=== PATIENT | female | born 1975 | race Caucasian/White ===

== ENCOUNTER 2023-06-02 12:49 | Outpatient (CLI) | payer BC, SELFPAY | END 2023-06-02 12:50 | disposition home or self-care (01) | PROVIDERS: PCP Family Medicine; Visit Provider Family Medicine | DX: I10 Essential (primary) hypertension (principal); D64.9 Anemia, unspecified; Z13.29 Encounter for screening for other suspected endocrine disorder; Z13.9 Encounter for screening, unspecified | CPT/HCPCS: 80053; 80061; 82043; 82570; 84156; 84443; 86803 ==

== ENCOUNTER 2023-06-14 14:14 | Outpatient (CLI) | payer BC, SELFPAY ==
--- NOTE | 2023-06-14 14:30 | CRLHL7_ITS ---
For Patients: As a result of the Century Cures Act, medical imaging exams and procedure reports are released immediately into your electronic medical record. You may view this report before your referring provider. If you have questions, please contact your health care provider. INDICATION: Eye issues. TECHNIQUE: Multiplanar multisequence MR imaging of the brain prior to and following intravenous contrast. COMPARISON: None. FINDINGS: The ventricles and sulci are within normal limits for patient age. No mass effect or midline shift. Small FLAIR hyperintensities scattered in the supratentorial white matter of both cerebral hemispheres, nonspecific. Small chronic cortically based infarctions within the parietal lobes. Chronic lacunar infarctions in the cerebellar hemispheres. No intracranial hemorrhage or pathologic extra-axial fluid collection. No diffusion restriction to suggest acute infarction. No pathologic intracranial enhancement. The major arterial flow voids of the skullbase are preserved. The globes are symmetric. Mild paranasal sinus mucosal thickening. Trace mastoid fluid bilaterally. IMPRESSION: 1. No acute intracranial abnormality. 2. 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 Chronic lacunar infarctions in the cerebellum. 3. Small FLAIR hyperintensities scattered in the supratentorial white matter are nonspecific, though most typical for sequelae of mild chronic microvascular ischemic changes or migraine headaches. Dictated by John Shore MD @ 06/14/2023 6:04:03 PM (Electronically Signed)
--- NOTE | 2023-06-14 16:00 | CRLHL7_ITS ---
For Patients: As a result of the Century Cures Act, medical imaging exams and procedure reports are released immediately into your electronic medical record. You may view this report before your referring provider. If you have questions, please contact your health care provider. INDICATION: EXCESSIVE AND FREQUENT BLEEDING COMPARISON: none TECHNIQUE: 2D morocho scale and color Doppler images were acquired of the pelvis using a transabdominal and transvaginal approach. FINDINGS: Exophytic left fundal fibroid measures 4.6 x 4.7 x 4.4 cm. Right fundal intramural fibroid abutting the endometrium measuring 2.9 x 3.3 x 3.1 cm. Midline hypoechoic solid structure measures 3.1 x 1.7 x 2.2 cm. Uterus measures 9.8 cm in length by 6.0 cm in AP diameter by 7.8 cm in transverse dimension. The endometrium is thickened and heterogeneous measuring 2.1 cm. The right ovary is not visualized and the left ovary measures 2.6 x 1.6 x 1.8 cm. The left ovary demonstrates normal arterial and venous blood flow on color Doppler analysis. There are no suspicious fluid collections within the cul-de-sac. IMPRESSION: Midline solid structure associated with the endometrium measuring 3.1 x 1.7 x 2.2 cm, probable submucosal fibroid, exclude endometrial polyp. Thickened and heterogeneous endometrial thickness measuring 2.1 cm. Left fundal exophytic fibroid measuring 4.7 cm and right fundal intramural fibroid abutting the endometrium measuring 3.3 cm. Dictated by Troy Rivera MD @ 06/15/2023 11:55:56 AM (Electronically Signed)
== END 2023-06-14 14:15 | disposition home or self-care (01) ==
PROVIDERS: PCP Family Medicine; Visit Provider Family Medicine
DX: Z80.8 Family history of malignant neoplasm of other organs or systems (principal); I63.81 Other cerebral infarction due to occlusion or stenosis of small artery; G51.0 Bell's palsy; I10 Essential (primary) hypertension; N92.0 Excessive and frequent menstruation with regular cycle; R93.89 Abnormal findings on diagnostic imaging of other specified body structures; D64.9 Anemia, unspecified
CPT/HCPCS: 70553; 76830; 76856; A9575

== ENCOUNTER 2023-08-25 12:48 | Outpatient (CLI) | payer BC, SELFPAY ==
--- NOTE | 2023-08-25 13:00 | MM_ITS ---
Patient: BECCA MOSS Facility:?[facility] Patient ID:?[id number] Site Patient ID:?[id number]. Site :?[id number] Study:?XRay-Breast Bilateral 3D W/CAD-08/25/2023 3:49:47 PM Ordering Physician:?Salma Contreras Final Report: BILATERAL SCREENING MAMMOGRAM WITH COMPUTER-AIDED DETECTION AND TOMOSYNTHESIS TECHNIQUE: CC and MLO views were obtained. These mammographic images have been obtained using full-field digital technique. These mammographic images were interpreted with the benefit of computer-aided detection. Breast Tomosynthesis was used in this interpretation. COMPARISON FILM: 01/04/22, 05/11/20, 08/19/16. FINDINGS: The breasts are heterogeneously dense, which may obscure small masses. IMPRESSION: There is no radiographic evidence for malignancy. ASSESSMENT: BI-RADS Category 2: Benign RECOMMENDATION: Routine screening mammogram in 1 year. A lay language report of this examination will be provided to the patient. Troy Rivera M.D. Diagnostic Radiologist [email or web address] DSM/sp R& Transcribed: 5:14 p. SP/Dictated by: Troy Rivera MD @ 09/14/2023 10:22:00 AM Signed by:Alba Rivera MD @09/14/2023 8:24:20 PM (Electronic Signature)
== END 2023-08-25 12:49 | disposition home or self-care (01) ==
PROVIDERS: PCP Family Medicine; Visit Provider Family Medicine
DX: Z12.31 Encounter for screening mammogram for malignant neoplasm of breast (principal); R92.2 Inconclusive mammogram
CPT/HCPCS: 77063; 77067

== ENCOUNTER 2023-09-20 07:32 | Day surgery (SDC) | payer BC, SELFPAY ==
[2023-09-20] VITALS (22 sets, daily range): BP systolic 97–123; BP diastolic 65–88; PULSE 60–94; RESP 12–22; TEMP 35.9–37.3; O2SAT 97–100; BMI 24.7
[2023-09-20 08:05] LABS: Ur HCG Qualitative* Negative (Negative)
[2023-09-20 08:10] LABS: Hemoglobin* 12.1 gm/dL (12.0-16.0)
[2023-09-20] MEDS: LACTATED RINGERS 1000 ML 1,000 ML 100 ML IV (08:13)
[2023-09-20] MEDS: SODIUM CHLORIDE 0.9 % (FLUSH) 10 ML SYRINGE IVF (08:13)
[2023-09-20] MEDS: CEFAZOLIN 2 GM INJ IVP (08:49)
[2023-09-20] MEDS: BUPIVACAINE 0.5% 30 ML INJECTION (10:20)
--- NOTE | 2023-09-20 10:26 | P.NB_ITS ---
Nerve Block Nerve Block Time Seen by Provider: 08:35 Date Seen: 09/20/23 Type of block requested by surgeon for post-operative analgesia: TAP Side: bilateral Time out performed: Yes Verification of patient name: Yes Verification of date of : Yes Site marking: site marked Name of person performing procedure: Kyler Continuous monitoring Was continuous monitoring of O2 sat, B/P, nuclear monitoring technician, recorded every 15 minutes?: Yes Procedure Checklist: sterile prep, needles and gloves Ultrasound guided. Images saved: Yes Medications given in 5ml increments after negative aspiration: Marcaine %: 0.25 mL: 30 Needle gauge: 20 and Exparel mL: 10 Patient tolerated procedure well: Yes Additional comments: Needle noted between internal oblique and transversus abdominus. Local spread visualized Block Charges Block Charge (with Pro Fee): TAP Bilateral Use of Ultrasound Machine for Block: Yes- US Guidance/pain block
--- NOTE | 2023-09-20 10:26 | W.ANESCHARGE ---
Anesthesia Charges Start Date/Time Anesthesia Start Date: 09/20/23 Anesthesia Start Time: 08:25 Stop Date/Time Anesthesia Stop Date: 09/20/23 Anesthesia Stop Time: 10:47
--- NOTE | 2023-09-20 10:37 | P.PCN_ITS ---
Procedure Note Time Seen by Provider: 10:38 Date Seen: 09/20/23 Date of procedure: 09/20/23 Will [facility] bill your pro fee for this procedure?: Yes Procedure: Preoperative diagnosis: 63-isra-xhp-year-old 4 para 4 with uterine fibroids and heavy menstrual bleeding. Postoperative diagnosis: Same Procedure: Total laparoscopic hysterectomy, bilateral salpingectomy, diagnostic cystoscopy. Anesthesia: General endotracheal, local,TAPS block. Surgeon: Joan Parmar MD Assist: Mely Leo MD Estimated blood loss: 150 mL. IV Fluid: 1900 mL Urine output: 400 mL Drains: Tubbs to gravity Specimen: Uterus and bilateral fallopian tubes to pathology. Findings: On exam under anesthesia: The uterus was mid position, approximately 12-14 week size, mobile without nodularity or masses palpable. Adnexa without mass or fullness palpable. On laparoscopy: Enlarged uterus with multiple intramural fibroids. Appendix, liver and gallbladder all appeared normal. Procedure: Hollie was taken to the operating room where general anesthetic was found to be adequate. She was placed in the dorsal lithotomy position and an exam under anesthesia was performed with findings stated above. She was then prepped and draped in a normal sterile manner. A Tubbs catheter was placed. A bivalve speculum was placed in the vaginal canal. A long Allis clamp was placed on the anterior lip of the cervix, in the uterus sounded to 10 cm. A extra large VCare uterine manipulator was then placed. The Allis clamp and speculum were removed from the cervix. Attention was then turned to performing the laparoscopic portion of the procedure. All incisions were infiltrated with 0.5% Marcaine prior to incising the skin. A vertical, infraumbilical 1 cm incision was made. An 11 mm trocar was then placed under direct visualization. The abdomen was then insufflated with CO2 gas to a pressure of 15 mm of mercury. Two,, pelvic ports were then placed approximately 3-4 finger breaths medial to the ischial crests. The trocar in the RLQ = 5mm, LLQ = 11mm. These were placed under direct visualization. Attention was then turned to performing the hysterectomy. Both ureters were visualized in the normal position bilaterally. The left fallopian tube was grasped and removed with sequential pedicles using the dissecting, PowerSeal blunt tip dissecting forceps. The left side of the hysterectomy was performed using the PowerSeal dissecting forceps. The 1st pedicles were starting with the broad ligament that was cauterized and and bisected. In sequence show pedicles were formed to divide the utero-ovarian ligament. Then sequential pedicles were made through the broad ligament. The posterior leaf of the broad ligament was then divided and sequential pedicles carried down to the level of the VCare cup. The anterior leaf of the broad ligament was then divided down to the level of the anterior aspect of the VCare cup and a bladder flap created. The uterine vessels were then skeletonized. The uterine vessels were then cauterized and divided. Then excess tissue was cleared over the top of the VCare cup using the dissecting forceps. The right salpingectomy and right side of the hysterectomy were then performed in a similar manner. The Ligasure Binary Fountainlab pen with the spatula attachment was then used to perform the colpotomy incising around the VCare cup. The uterus was removed and the fundus placed in the vaginal canal to maintain insufflation. The vaginal cuff was then reapproximated using 2-0 V lock suture in a running manner. All the pedicles and vaginal cuff were then closely visualized and hemostasis obtained with bipolar cautery using the PowerSeal dissecting forceps or the Valleylab pen with the spatula. The the uterus was removed from the vaginal canal and sent to pathology. The Tubbs catheter was briefly removed. A diagnostic cystoscopy was performed using normal saline as the insufflation medium. The dome of the bladder was noted to be without injury and no evidence of any sutures from the vaginal cuff causing injury. Normal urine flow was noted through both ureteral orifices. Fluorescein IV was used to visualize the urine more easily. The Tubbs catheter was then replaced. Attention was then returned to the abdomen where hemostasis was verified. The CO2 pressure decreased to 8mmHG and hemostasis verified. The fascia in the LLQ incision was approximated with 0-Vicryl suture using the Jeremy Thomasen fascial closure device. This was closed under direct visualization with the laparoscope. The fascia in the umbilical incision was reapproximated using 0 Vicryl on a UR 6 needle. All trocars were removed under direct visualization. CO2 gas was allowed to escape the infraumbilical port prior to its removal. All skin incisions were re-approximated using 4-0 Monocryl in a running subcuticular manner, Exofin skin adhesive gel and adhesive bandages placed. The patient tolerated this procedure well. Sponge, lap and instrument counts were correct x2 at the end of the procedure and the patient was taken to the recovery area in stable condition. The patient received 2 gm IV ancef prior to the start of the procedure.
--- NOTE | 2023-09-20 10:44 | W.PM.H&PU ---
History & Physical Update History & Physical Update H&P Reviewed and patient assessed: No changes noted
--- NOTE | 2023-09-20 10:45 | W.ANESCHARGE ---
Anesthesia Charges Start Date/Time Anesthesia Start Date: 09/20/23 Anesthesia Start Time: 08:25 Stop Date/Time Anesthesia Stop Date: 09/20/23 Anesthesia Stop Time: 10:47
[2023-09-20] MEDS: LACTATED RINGERS 1000 ML 1,000 ML 125 ML IV ×2 (11:57→11:59)
[2023-09-20] MEDS: ASPIRIN 81 MG TABLET EC PO (13:01)
[2023-09-20] MEDS: KETOROLAC 30 MG/ML inj IVP ×2 (15:35→21:48)
--- NOTE | 2023-09-20 19:21 | PC.NURSE ---
End of shift: Pt arrived to unit from PACU @ 1130. Pt has been A&O x4, afebrile and VSS. Tubbs catheter intact and draining clear, light green urine with adequate output. Lap sites x3 SHANNON and C/D/I. PIV in left hand now SL and C/D/I. Pt tolerating PO intake with no nausea. She reports intermittent right rib pain rating 4/10. Scheduled IV Toradol given per AUG. No PRN meds given so far.
[2023-09-20] MEDS: ENOXAPARIN 40 MG/0.4 ML INJ SUBCUT (21:47)
[2023-09-20] MEDS: SODIUM CHLORIDE 0.9 % (FLUSH) 10 ML SYRINGE 5 ML IVF (21:49)
[2023-09-21 03:00] VITALS: BP 111/74; PULSE 62; RESP 16; TEMP 37.2; O2SAT 97
[2023-09-21] MEDS: IBUPROFEN 600 MG TABLET PO ×2 (03:13→09:13)
[2023-09-21 05:33] LABS: Hemoglobin* 10.8 gm/dL (12.0-16.0)
--- NOTE | 2023-09-21 06:37 | PC.NURSE ---
[id number] Pt slept well during night, ambulated halls x1 in the evening, tolerated activity very well. has some cramping but pain controlled with scheduled meds. mooney in place, patent and draining. lap sites C/D/I, ice to abdomen during night. denies passing gas at this time. tolerating PO intake, no N/V.
[2023-09-21 07:00] VITALS: BP 125/84; PULSE 65; RESP 16; TEMP 36.6; O2SAT 99
--- NOTE | 2023-09-21 08:32 | P.DS_ITS ---
DS: Providers Provider Time Seen by Provider: 08:32 Date Seen: 09/21/23 Date of admission: In 2023 Primary care physician: Salma Contreras MD Admitting Clinician: Joan Parmar MD Attending Physician on discharge: Joan Parmar MD Date of Discharge: 09/21/23 DS: Diagnosis Discharge Diagnosis (1) Status post laparoscopic hysterectomy: Status: Acute Problem details: with bilateral salpingectomy. (2) Fibroid uterus: Status: Acute SOCK LINING EXAMINER-Discharge Summary Hospital Course Hospital Course Narrative: Hospital Course: Hollie was admitted to the hospital on 09/20/2023 for a scheduled scheduled total laparoscopic hysterectomy, bilateral salpingectomy and cystoscopy. Her surgery was uncomplicated. Her postoperative course was also uncomplicated. By postoperative day 1, she was tolerating a regular diet, ambulating without difficulty, passing flatus and pain was well controlled with oral pain medications. She would like to be discharged home today. Labs: Preoperative hemoglobin 12.1, postoperative hemoglobin 10.8. Objective: General: Alert and oriented x3. Pleasant, woman in no acute distress. Vital signs: See EMR. Heart: Regular rate and rhythm without gallop, rub or murmur. Chest: Clear to auscultation bilaterally. Abdomen: Soft, nontender, nondistended with normal bowel sounds throughout. No CVA or flank tenderness. Incision(s): Clean, dry and intact w/ sutures and skin adhesive. Pelvic: Minimal vaginal bleeding, remainder of pelvic exam deferred. Extremities: No pain, edema, cyanosis or clubbing. Assessment: 48-year-old postoperative day 1 from a H/bilateral salpingectomy/diagnostic cystoscopy doing well. Plan: 1. Discharge home today. 2. Activity restrictions reviewed with the patient. 3. Return to clinic to see Dr. Parmar for a postoperative visit in 2-3 weeks. Time Spent with Patient Time attestation: Total time spent providing and/or coordinating discharge services: SOCK LINING EXAMINER - Exam Physical Exam: Vital signs: Temp Pulse Resp BP Pulse Ox O2 Del Method 98.9 F 62 16 111/74 97 Room Air 09/21/23 03:00 09/21/23 03:00 09/21/23 03:00 09/21/23 03:00 09/21/23 03:00 09/21/23 03:00 SOCK LINING EXAMINER - DS: Data Data Completed and Pending Labs on day of discharge: Labs from last 24 hours 09/21/23 09/20/23 05:21 08:04 Hgb 10.8 L Blood Type A Positive Antibody Screen NEGATIVE Procedures Procedures: Procedures Operation Date: 09/20/23 08:45 Actual Procedure Side Surgeon p Total Laparoscopic Hysterectomy, Bilateral Salpingectomy, Diagnostic Cystoscopy Joan Parmar MD Discharge Plan Discharge Disposition: Home, Self-Care Discharging Surgeon: Joan Parmar Follow-Up Appointment: With Joan Parmar in 2-3 weeks Prescriptions: New docusate sodium 100 mg Capsule 100 mg PO BID PRN (Reason: Constipation) Qty: 100 0RF ibuprofen 600 mg Tablet 600 mg PO Q6H Qty: 30 0RF oxycodone 5 mg Tablet 5 mg PO 3XD PRN (Reason: Moderate Pain) Qty: 21 0RF Continued ferrous sulfate [Iron (ferrous sulfate)] 325 mg (65 mg iron) tablet 325 mg PO QDAY losartan 25 mg tablet 25 mg PO QDAY Qty: 90 3RF aspirin 81 mg tablet,delayed release (DR/EC) 81 mg PO QDAY atorvastatin 10 mg tablet 10 mg PO QHS Qty: 90 3RF Discontinued norethindrone (contraceptive) [Irma] 0.35 mg tablet 0.35 mg PO QDAY Qty: 84 3RF Discharge Diet: Regular Patient Instructions: Laparoscopic Hysterectomy (DC), Laparoscopic Hysterectomy (GEN) Additional Instructions: ACTIVITY RESTRICTIONS: Nothing vaginally for 6 weeks: no tampons/intercourse No driving while taking narcotic pain medication during the day. 1-2 weeks. Lifting restriction: Maximum of 20 pounds for 2-3 weeks. High impact or core exercises: 3 weeks. Submerge the incisions in water (bath/pool/gomez): 2 weeks. Off of work/school for a minimum of 4 weeks NO RESTRICTIONS for: Walking Going up/down stairs Showering Passenger in a motorized vehicle Symptoms to report to your doctor Bleeding that is red, like a moderate period Passing clots larger than the size of a golf ball Pain not relieved by prescribed medication Fever above 100.4 degrees Fahrenheit A foul vaginal odor Decrease in urination or painful, frequent urinating Chest pain Shortness of breath Tenderness or pain with redness and/swelling in the calf(s) of your leg Follow-up Appointments: 1. [facility] 2-3 weeks for an incision check. 2. A 6 week postop visit to verify that the vaginal cuff is well-healed. Forms: Work/School Release Follow-up: Joan Parmar MD [Staff Physician] - Salma Contreras MD [Primary Care Provider] - Discharge Orders: Discharge Order (Routine); Ordered 09/21/23 Ordered By: Joan Parmar Consulting provider completed their portion of the discharge: Yes Discharge Potential: Good
[2023-09-21] MEDS: SODIUM CHLORIDE 0.9 % (FLUSH) 10 ML SYRINGE 5 ML IVF (09:13)
[2023-09-21] MEDS: ASPIRIN 81 MG TABLET EC PO (09:19)
--- NOTE | 2023-09-21 11:57 | PC.NURSE ---
Nursing discharge note: Pt is A&O x4, afebrile and VSS day of discharge. Pt tolerated breakfast this morning with no nausea. No PRN pain medications given this stay- pain has been managed with scheduled anti-inflamatory meds. PIV in left hand discontinued- catheter intact. Lap sites x3 dermabond C/D/I. Pt denies any dyspnea or nausea. Tubbs removed @ 1000 and pt successfully voided after removal. Noted urine to be bloody with no clots present. Discharge education & medication instructions reviewed with patient and her , Andrew. They both verbalized understanding and questions answered appropriately. Patient discharged at 1130 via ambulatory accompanied by specifications writer and her .
== END 2023-09-21 11:30 | disposition home or self-care (01) ==
LOC: OR 07:33 → MEDSURG 07:35
PROVIDERS: PCP Family Medicine; Visit Provider Obstetrics & Gynecology
PROC: 0UT94ZZ Resection of Uterus, Percutaneous Endoscopic Approach (ICD-10-PCS; CPT 58573; principal; 2023-09-20 08:45)
DX: N92.0 Excessive and frequent menstruation with regular cycle (principal); D25.1 Intramural leiomyoma of uterus; N85.2 Hypertrophy of uterus; N83.8 Other noninflammatory disorders of ovary, fallopian tube and broad ligament; G89.18 Other acute postprocedural pain
CPT/HCPCS: 58573; 00840; 36415; 64488; 76942; 81025; 85018; 86850; 86900; 86901; 88307; A9270; C9290; J0330; J0665; J0690; J1100; J1650; J1885; J2250; J2405; J2704; J3010; J7120

== ENCOUNTER 2023-11-01 10:40 | Outpatient (CLI) | payer BC, SELFPAY | END 2023-11-01 10:41 | disposition home or self-care (01) | LOC: NFLDREF 10:42 | PROVIDERS: PCP Family Medicine; Visit Provider Obstetrics & Gynecology | DX: R39.15 Urgency of urination (principal) | CPT/HCPCS: 87086 ==

== ENCOUNTER 2024-06-03 11:03 | Outpatient (CLI) | payer BC, SELFPAY | END 2024-06-03 11:04 | disposition home or self-care (01) | PROVIDERS: PCP Family Medicine; Visit Provider Family Medicine | DX: D64.9 Anemia, unspecified (principal); I63.9 Cerebral infarction, unspecified; R76.0 Raised antibody titer; Z13.21 Encounter for screening for nutritional disorder | CPT/HCPCS: 82607; 83090; 86147 ==

== ENCOUNTER 2024-11-28 14:44 | Outpatient (CLI) | payer BC, SELFPAY ==
--- NOTE | 2024-11-28 15:00 | CRLHL7_ITS ---
For Patients: As a result of the Century Cures Act, medical imaging exams and procedure reports are released immediately into your electronic medical record. You may view this report before your referring provider. If you have questions, please contact your health care provider. INDICATION: BILATERAL SCREENING MAMMOGRAM W/IMPLANTS, ASYMPTOMATIC 49 Y/O FEMALE COMPARISON: 08/25/2023, 01/04/2022, 05/11/2020 TECHNIQUE: Digital mammogram in CC and MLO projections including computer-aided detection (CAD) and tomosynthesis. BREAST COMPOSITION: There are scattered areas of fibroglandular density. FINDINGS: No suspicious findings. ASSESSMENT: BI-RADS 2 Benign RECOMMENDATION: Annual screening mammogram. A lay language report of this examination will be provided to the patient. Dictated by: Troy Rivera MD @ 11/29/2024 11:29:01 (Electronically Signed)
--- OUTSIDE RECORDS SUMMARY | 2024-11-29 00:38 | XMS_ITS | Encounter Summary ---
Author Organization [facility] Address [address] [place] [address] Care Team Providers Care Auto Phone Installer Name Role Phone [facility], [facility] Primary Care Provider Hank King MD Unavailable Hank King MD Unavailable Pepito Ying MD Unavailable [phone] Palmer Maria PA-C Unavailable [phone] Pepito Ying MD Unavailable [phone] Encounter Details Date Type Department Care Team (Late st Contact Info) Description 01/11/2024 [facility] [place] [facility] [address] [place] [address] [phone] Yelena Sky Social History Tobacco Use Types Packs/Day Years Used Date Smoking Tobacco: Never Smokeless Tobacco: Never Alcohol Use Standard Drinks/Week Comments Yes 0 (1 standard drink = 0.6 oz pur e alcohol) occassional Adolescent Education Answer Date Record ed Getting School Help Needed Not on file 03/28 Comments No Sex and Gender Information Value Date Recorded Sex Assigned at Not on file 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 Gender Identity Not on file Sexual Orientation Not on file documented as of this encounter Plan of Treatment Not on file documented as of this encounter Visit Diagnoses Not on filedocumented in this encounter Care Teams Auto Phone Installer Relationship Specialty Start Date End Date Clinic, [address] [address] PCP - General 06/16/23 Hank King MD [address] [place], [place] [phone] Neurology 06/20/23 Hank King MD [address] [place], [place] [phone] Assigned Neuroscience Provider 06/17/23 Pepito Ying MD [address] [place] [address] Cardiovascular Disease 09/13/23 Palmer Maria PAFamC [address] [place] [id number] Assigned Cancer Care Provider 10/03/23 Pepito Ying MD [address] [place] [id number] Assigned Heart and Vascular Provider 11/02/23 documented as of this encounter
--- OUTSIDE RECORDS SUMMARY | 2024-11-29 00:38 | XMS_ITS | Encounter Summary ---
Author Organization [facility] Address [address] [place] [address] Care Team Providers Care Industrial Safety And Health Manager Name Role Phone [facility], [facility] Primary Care Provider Hank King MD Unavailable Hank King MD Unavailable Pepito Ying MD Unavailable [phone] Palmer Maria PA-C Unavailable [phone] Pepito Ying MD Unavailable [phone] Encounter Details Date Type Department Care Team (Late st Contact Info) Description 05/01/2024 [facility] [place] [facility] [address] [phone] September Social History Tobacco Use Types Packs/Day Years [...] on file 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 Gender Identity Not on file Sexual Orientation Not on file documented as of this encounter Plan of Treatment Not on file documented as of this encounter Visit Diagnoses Not on filedocumented in this encounter Care Teams Industrial Safety And Health Manager Relationship Specialty Start Date End Date [facility], [address] [phone] PCP - General 06/16/23 Hank King MD [address] [place], [place] [phone] Neurology 06/20/23 Hank King MD [address] [place], [place] [phone] Assigned Neuroscience Provider 06/17/23 Pepito Ying MD [address] [place] [address] Cardiovascular Disease 09/13/23 Palmer Maria, PAFamC [address] [place] [address] [id number] Assigned Cancer Care Provider 10/03/23 Pepito Ying MD [address] [place] [id number] Assigned Heart and Vascular Provider 11/02/23 documented as of this encounter
--- OUTSIDE RECORDS SUMMARY | 2024-11-29 00:38 | XMS_ITS | Encounter Summary ---
Author Organization [facility] Address [address] [place] [address] Care Team Providers Care Acid Bath Mixer Name Role Phone [facility], [facility] Primary Care Provider Hank King MD Unavailable Hank King MD Unavailable Pepito Ying MD Unavailable [phone] Palmer Maria PA-C Unavailable [phone] Pepito Ying MD Unavailable [phone] Encounter Details Date Type Department Care Team (Late st Contact Info) Description 05/01/2024 [facility] [place] Medical Advice [facility] [address] [place] [phone] Mely Bailon, RN Social History Tobacco Use Types Packs/Day Years [...] on file 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 Gender Identity Not on file Sexual Orientation Not on file documented as of this encounter Plan of Treatment Not on file documented as of this encounter Visit Diagnoses Not on filedocumented in this encounter Care Teams Acid Bath Mixer Relationship Specialty Start Date End Date Clinic, [address] [address] PCP - General 06/16/23 Hank King MD [address] [place], [place] [phone] Neurology 06/20/23 Hank King MD [address] [place], [place] [phone] Assigned Neuroscience Provider 06/17/23 Pepito Ying MD [address] [place] [id number] Cardiovascular Disease 09/13/23 Palmer Maria PAFamC [address] [place] [address] [id number] Assigned Cancer Care Provider 10/03/23 Pepito Ying MD [address] [place] [id number] Assigned Heart and Vascular Provider 11/02/23 documented as of this encounter
--- OUTSIDE RECORDS SUMMARY | 2024-11-29 00:39 | XMS_ITS | Clinical Summary ---
Author Organization [facility] Address [address] [place] [address] Care Team Providers Care Director Of Income Tax Name Role Phone Jennifer Torres PA-C Primary Care Provider [phone] Source Comments You are receiving this document as you are listed as the primary care provider,follow-up provider, or the patient has been referred to you for consultation.This is in compliance with the Medicare and[facility] EHR Incentive Program,which states Providers who transition their patient to another setting of careor provider of care or refers their patient to another provider of care shouldprovide summary care record for each transition of care or referral. [facility] Allerg[facility] No known active allergies Medications hydroCHLOROthiazid e (ORETIC) 25 MG tabletIndications: Essential hypertension (HRC) Take 1 Tablet (25 mg) by mouth daily. 90 Tablet 3 2 Active lisinopril (ZESTRIL) 5 MG tabletIndications: Essential hypertension (HRC) Take 1 Tablet (5 mg) by mouth daily. 90 Tablet 3 2 Active bisacodyl 5 MG enteric coated tablet Take 4 tablets by mouth once at 5PM the evening before your procedure. 4 Tablet 3 Active norgestimate-ethin yl estradiol (ORTHO TRI-CYCLEN) 0.18/0.215/0.25 MG-35 MCG tabletIndications: Encounter for contraceptive management, unspecified type TAKE 1 TABLET BY MOUTH EVERY DAY 28 Tablet 1 4 Active Active Problems Problem Noted Date Diagnosed Date Essential hypertension 01/08/2019 MOHAN (iron deficiency anemia) 01/08/2019 H/O breast implant 05/06/2016 Vegetarian 12/20/2011 Resolved Problems Problem Noted Date Diagnosed Date Resolved Date Elderly multigravida with an tepartum condition or complication, unspecified trimester 11/21/2011 03/20/2015 Overview (02/01/2017): Advanced maternal age, antepartum condition or complication Immunizations Immunization Administration Dates Next Due Flu Vac Preserv Free (3+yrs) 03/16/2012,04/22/20 10,04/10/2006 HepA-HepB (T[place], 18+ yrs) 01/08/2019,04/10/20 06,03/07/2006 Influenza IIV4 (Quadrivalent ) 0.5mL (84651) 03/31/2022,03/11/2020,03/29/2018,2015,03/20/2015,04/22/2011 Influenza, Unspecified Formulation 05/25/2000 Moderna Bivalent 12+ 04/12/2022 Moderna Monovalent 12+ 05/18/2021,08/15/2020,11/2020 TDAP (BOOSTRIX) 04/13/2012 Td 09/06/1999 Tdap 11/05/2010 Family History Medical History Relation Name Comments Cancer, Other Father kidney Cancer, Prostate Father Diabetes, Type II Father Hypertension Father Cancer, Other Mother glioblastoma Hypertension Mother Cancer, Breast Maternal Aunt br ca 50's, lung Coronary Artery Disease Maternal Grandfather Celiac Disease Maternal Grandmother Cancer, Other Maternal Uncle glioblastoma Cancer Paternal Grandfather throat Cancer, Colon Paternal Uncle Relation Name Status Comments Father Alive Mother Alive Maternal Aunt Maternal Grandfather Maternal Grandmother Maternal Uncle Paternal Grandfather Paternal Grandmother Paternal Uncle Sister 1 Alive Sister 2 Alive Social History Tobacco Use Types Packs/Day Years Used Date Smoking Tobacco: Never Smokeless Tobacco: Never Alcohol Use Standard Drinks/Week Comments Yes 0 (1 standard drink = 0.6 oz pur e alcohol) occ PHQ-2 Answer Date Recorded PHQ-2 Score 1 03/25/2022 Comments No Sex and Gender Information Value Date Recorded Sex Assigned at Not on file Legal Sex Female 10:14 AM CDT Gender Identity Not on file Sexual Orientation Not on file Occupation Industry Job Start Date Job End Date 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 file Not on file Not on file Last Filed Vital Signs Vital Sign Reading Time Taken Comments Blood Pressure 85/50 08/23/2022 3:40 PM CDT Pulse 75 08/23/2022 3:40 PM CDT Temperature 36.7 C (98 F) 03/25/2022 10:31 AM CDT Respiratory Rate 16 08/23/2022 3:40 PM CDT Oxygen Saturation 99% 08/23/2022 3:40 PM CDT Inhaled Oxygen Concentration - - Weight 59 kg (130 lb) 08/23/2022 2:41 PM CDT Height 160 cm (5' 3) 08/23/2022 2:41 PM CDT Body Mass Index 23.03 08/23/2022 2:41 PM CDT Plan of Treatment Health Maintenance Due Date Last Done Comments Cervical Cancer Screening 03/29/20212017, 03/29/2018, 03/20/2015, Additional history exists DTaP/Tdap/Td Vaccine (3 - Tdap) 04/13/2022 04/13/2012, 11/05/2010, 09/06/1999 Mammogram 01/04/2023 01/04/2022, 04/14, 08/19/2016 Adult Preventive Visit 03/25/2023 , 03/29/2018, 05/06/2016 COVID-19 Vaccine ( season) 2024 04/12/2022, 05/18/2021, 08/15/2020, Additional history exists Influenza Vaccine (Season Ended) 2025 03/31/2022, 03/11/2020, 03/29/2018, Additional history exists Zoster/Shingles Vaccine (1 of 2) 02/09/2026 Cholesterol 03/25/2027 03/25/2022, 09/06/1999 Colonoscopy 08/23/2032 08/23/2022 HIV Screening (Preventive Services) Completed 12/20/2011, 03/25/2010, 04/10/2006, Additional history exists HepA Vaccine Completed 01/08/2019, 03/14, 03/07/2006 HepB Vaccine Completed 01/08/2019, 03/14, 03/07/2006 Hep C Screening (Preventive Services) Completed 03/25/2022 Hib Vaccine Aged Out No longer eligi ble based on patient's age to complete this topic IPV (Polio) Vaccine Aged Out No longe r eligible based on patient's age to complete this topic MCV4 Vaccine Aged Out No longer eligi ble based on patient's age to complete this topic Meningococcal B Vaccine Aged Out No l onger eligible based on patient's age to complete this topic Pneumococcal Vaccine Aged Out No long er eligible based on patient's age to complete this topic Procedures Procedure Name Priority Date/Time Associated Diagnosis Comments ENDOSCOPY, COLON, SCREENING/DIAGNOSTI C Routine 08/23/2022 2:48 PM CDT Iron deficiency anemia, unspecified iron deficiency anemia type HEPATITIS C ANTIBODY, WITH REFLEX (ANTI-HCV) Routine 03/25/2022 12:07 PM CDT Screening for viral disease LIPID PANEL & DIRECT LDL (IF NEEDED) Routine 03/25/2022 12:07 PM CDT Screening for hyperlipidemia MM MAMMOGRAM SCREENING BILAT W IMPLANTS W CAD Routine 01/04/2022 11:28 AM CDT Screening breast examination ANATOMICAL PATH LIQUID BASED Routine 03/29/2018 8:18 AM CDT HIV ANTIBODY Routine 12/20/2011 3:12 PM CDT Special screening examination for other specified viral diseases from Last 3 Months or Most Recently Relevant to Health Maintenance Results * Endoscopy, colon, diagnostic (08/23/2022 2:48 PM CDT) Anatomical Region Laterality Modality Other 08/23/2022 2:48 PM CDT Narrative 08/23/2022 2:48 PM CDT Patient Name: Hollie Laird Procedure Date: 08/23/2022 2:48 PM Date of : 1975 Admit Type: Outpatient Age: 47 Note Status: Finalized Attending MD: Sol Gonzalez , Procedure: Colonoscopy Indications: Iron deficiency anemia Providers: Dari Mancilla Patient Profile: longstanding MOHAN Referring MD: Mary De La Rosa Medicines: Fentanyl 200 micrograms IV, Midazolam 4 mg IV Complications: No immediate complications. Procedure: After I obtained informed consent, the scope was passed under direct vision. Throughout the procedure, the patient's blood pressure, pulse, and oxygen saturations were monitored continuously. The [id number] was introduced through the anus and advanced to the terminal ileum. The colonoscopy was somewhat difficult due to significant looping. Successful completion of the procedure was aided by changing the patient to a supine position, straightening and shortening the scope to obtain bowel loop reduction and applying abdominal pressure. The patient tolerated the procedure well. The quality of the bowel preparation was good. Findings: The terminal ileum appeared normal. The colon (entire examined portion) appeared normal. No additional abnormalities were found on retroflexion. Moderate Sedation: Moderate (conscious) sedation was administered by the endoscopy nurse and supervised by the endoscopist. The patient's oxygen saturation, heart rate, blood pressure and response to care were monitored. Total physician intraservice time was 23 minutes. This time is the duration from the initial medication administration until the rim fire priming operator assists with initial maneuvers (biopsy / polypectomy / etc.), or if no maneuvers are performed, until the endoscopist leaves the room. Impression: - The examined portion of the ileum was normal. - The entire examined colon is normal. - No specimens collected. Recommendation: - Repeat colonoscopy in 10 years for screening purposes. - Return to primary care physician PRN. Procedure Code(s): --- Professional --- 12632, Colonoscopy, flexible; diagnostic, including collection of specimen(s) by brushing or washing, when performed (separate procedure) 13863, Moderate sedation; each additional 15 minutes intraservice time G0500, Moderate sedation services provided by the same physician or other qualified health ambulatory care nurse performing a gastrointestinal endoscopic service that sedation supports, requiring the presence of an independent trained observer to assist in the monitoring of the patient's level of consciousness and physiological status; initial 15 minutes of intra-service time; patient age 5 years or older (additional time may be reported with 43855, as appropriate) Diagnosis Code(s): --- Professional --- D50.9, Iron deficiency anemia, unspecified CPT copyright 2020 [employer]. All rights reserved. The codes documented in this report are preliminary and upon certified medical coder review may be revised to meet current compliance requirements. Sol Gonzalez, 08/23/2022 3:20:00 PM This document has been electronically signed. Number of Addenda: 0 Note Initiated On: 08/23/2022 2:48 PM Endoscopy Report Procedure Note Sol Gonzalez MD - 08/23/2022 Patient Name: Hollie Laird Procedure Date: 08/23/2022 2:48 PM Date of : 1975 Admit Type: Outpatient Age: 47 Note Status: Finalized Attending MD: Sol Gonzalez , Procedure: Colonoscopy Indications: Iron deficiency anemia Providers: Dari Mancilla Patient Profile: longstanding MOHAN Referring MD: Mary De La Rosa Medicines: Fentanyl 200 micrograms IV, Midazolam 4 mg IV Complications: No immediate complications. Procedure: After I obtained informed consent, the scope was passed under direct vision. Throughout the procedure, the patient's blood pressure, pulse, and oxygen saturations were monitored continuously. The [id number] was introduced through the anus and advanced to the terminal ileum. The colonoscopy was somewhat difficult due to significant looping. Successful completion of the procedure was aided by changing the patient to a supine position, straightening and shortening the scope to obtain bowel loop reduction and applying abdominal pressure. The patient tolerated the procedure well. The quality of the bowel preparation was good. Findings: The terminal ileum appeared normal. The colon (entire examined portion) appeared normal. No additional abnormalities were found on retroflexion. Moderate Sedation: Moderate (conscious) sedation was administered by the endoscopy nurse and supervised by the endoscopist. The patient's oxygen saturation, heart rate, blood pressure and response to care were monitored. Total physician intraservice time was 23 minutes. This time is the duration from the initial medication administration until the rim fire priming operator assists with initial maneuvers (biopsy / polypectomy / etc.), or if no maneuvers are performed, until the endoscopist leaves the room. Impression: - The examined portion of the ileum was normal. - The entire examined colon is normal. - No specimens collected. Recommendation: - Repeat colonoscopy in 10 years for screening purposes. - Return to primary care physician PRN. Procedure Code(s): --- Professional --- 61007, Colonoscopy, flexible; diagnostic, including collection of specimen(s) by brushing or washing, when performed (separate procedure) 49793, Moderate sedation; each additional 15 minutes intraservice time G0500, Moderate sedation services provided by the same physician or other qualified health ambulatory care nurse performing a gastrointestinal endoscopic service that sedation supports, requiring the presence of an independent trained observer to assist in the monitoring of the patient's level of consciousness and physiological status; initial 15 minutes of intra-service time; patient age 5 years or older (additional time may be reported with 64919, as appropriate) Diagnosis Code(s): --- Professional --- D50.9, Iron deficiency anemia, unspecified CPT copyright 2020 [employer]. All rights reserved. The codes documented in this report are preliminary and upon certified medical coder review may be revised to meet current compliance requirements. Sol Gonzalez, 08/23/2022 3:20:00 PM This document has been electronically signed. Number of Addenda: 0 Note Initiated On: 08/23/2022 2:48 PM Endoscopy Report us Mary De La Rosa PA-C ET GI PROCEDURE ORDERABLES Final Result * (ABNORMAL) Lipid Panel and Direct LDL(If Needed) (03/25/2022 12:07 PM CDT) Cholesterol 198 0 - 199 mg/dL 03/25/2022 4:40 PM CDT [facility] Triglyceride 106 <=149 mg/dL 03/25/2022 4:40 PM CDT [facility] HDL Cholesterol 46 >=40 mg/dL 03/25/2022 4:40 PM CDT [facility] LDL, Calculated 131(H) <130 mg/dL 03/25/2022 4:40 PM CDT [facility] Non HDL Chol, Calculated 152 <=159 mg/dL 03/25/2022 4:40 PM CDT [facility] Cholesterol/HDL Ratio 4.3 03/25/2022 4:40 PM CDT [facility] Hours Fasting N/A 03/25/2022 4:40 PM CDT [facility] Blood Venipuncture / Unknown 03/25/2022 12:07 PM CDT 03/25/2022 12:07 PM CDT Mary De La Rosa PA-C LAB_1 Final Resul t Performing Organization Address City/[facility]/ZIP Co de Phone Number [facility] [address] [place] [address], [facility] [phone] [facility] [address] [place] [address], [facility] [phone] * Hepatitis C Antibody, with Reflex (03/25/2022 12:07 PM CDT) Hepatitis C Antibody Negative (Non Reactive) Negative (Non Reactive) 03/25/2022 4:43 PM CDT [facility] Comment:Antibodies to HCV no t detected. Does not exclude the possiblity of exposure to HCV. Blood Venipuncture / Unknown 03/25/2022 12:07 PM CDT 03/25/2022 12:07 PM CDT us Mary De La Rosa PA-C LAB_1 Final Resul t Performing Organization Address City/[facility] Co de Phone Number [facility] [address] [place] [address], [facility] [phone] * MM Mammogram Screening Bilat W Implants W CAD (01/04/2022 11:28 AM CDT) Anatomical Region Laterality Modality Breast Bilateral Mammography Impressions 01/04/2022 11:43 AM CDT : ACR BI-RADS Category 2: Benign RECOMMENDATION: Follow Up Imaging in 12 months - Bilateral The results and recommendations of this examination will be communicated to the patient. Narrative 01/04/2022 11:43 AM CDT MM MAMMOGRAM SCREENING BILAT W IMPLANTS W CAD performed on 01/04/22 Compared to: 05/11/2020 MM Mammogram Screening Bilat W Implants W CAD and 08/19/2016 MM Mammogram Screening Bilat W Implants W CAD FINDINGS: Bilateral screening mammogram was performed with the assistance of Computer-Aided Detection . The breasts are heterogeneously dense, which may obscure small masses. There are findings of breast augmentation. There is no radiographic evidence of malignancy. Jennifer Torres PA-C RAD JENNIFER Final Result * Pap Smear (03/29/2018 8:18 AM CDT) 03/29/2018 8:18 AM CDT Narrative SOFT - 04/14/2018 2:00 PM CDT FINAL GYNECOLOGICAL CYTOLOGY REPORT Pathology #: [id number] Date Obtained: 03/29/2018 Date Received: 03/30/2018 INTERPRETATION/RESULTS: Negative for Intraepithelial Lesion or Malignancy. SPECIMEN ADEQUACY: Satisfactory for Evaluation. Endocervical cells/transformation zone component present. Verified on 04/09/2018 by CHIRAG CARMICHAEL (electronic signature) CLINICAL NOTES: Abnormal bleeding: No, LMP: 03/19/18, Menstrual status: None Apply, Current form of therapy: Hormone Therapy LIQUID BASED PAP SMEAR SPECIMEN TYPE: ROUTINE CERVICAL PAP TEST PLEASE NOTE: The pap smear is a screening test designed to aid in the detection of cervical cancer and its precursor lesions. It is not a diagnostic procedure and should not be used as the sole means of detecting cervical cancer. Both false-positive and false-negative reports may occur. Performed at [facility], [address] [place] [address] Mady Richards APRN, TRUNG LAB_1 Fi nal Result [facility] [address] [place] [address] * HIV ANTIBODY (12/20/2011 3:12 PM CDT) HIV 1/HIV 2 Non-React Non-Reacti ve HP CONVERSION 12/20/2011 3:12 PM CDT 12/20/2011 6:33 PM CDT Mady Richards APRN, CORROSION CONTROL ENGINEER LAB_1 Fi nal Result HP CONVERSION from Last 3 Months or Most Recently Relevant to Health Maintenance Insurance BC OUT OF STATE Care Teams Director Of Income Tax Relationship Specialty Start Date End Date Jennifer Torres PAFamC [address] [place] [address] PCP - General Physician Store Custodian 12/02/21
--- OUTSIDE RECORDS SUMMARY | 2024-11-29 00:39 | XMS_ITS | Clinical Summary ---
Author Organization [facility] Address [address] [place] [address] Care Team Providers Care English And Reading Instructor Name Role Phone [facility], [facility] Primary Care Provider Hank King MD Unavailable Hank King MD Unavailable Pepito Ying MD Unavailable [phone] Palmer Maria PA-C Unavailable [phone] Pepito Ying MD Unavailable [phone] Allergies No known active allergies Medications losartan (COZAAR) 25 MG tablet Take 25 mg by mouth daily Active atorvastatin (LIPITOR) 10 MG tablet Take 10 mg by mouth daily Active aspirin 81 MG EC tablet Take 81 mg by mouth daily Active Active Problems Problem Noted Date Diagnosed Date Positive cardiolipin antibodies 09/14/2023 Migraine with aura and witho ut status migrainosus, not intractable 06/16/2023 H/O bilateral strokes 06/16/2023 Essential hypertension 01/08/2019 MOHAN (iron deficiency anemia) 01/08/2019 Resolved Problems Problem Noted Date Diagnosed Date Resolved Date Uterine contractions or othe r obstetric complaints 07/24/2012 06/16/2023 Labor and delivery, indication for care 07/24/2012 06/16/2023 Immunizations Immunization Administration Dates Next Due COVID-19 Monovalent 18+ (Moderna) 07/18/2020 Flu, Unspecified 05/25/2000 Hepatitis A/B (Twinrix) 01/08/2019,04/10/2006, Influenza (prior to 2023) 04/22/2010,04/10/2006 Influenza Vaccine >6 months,quad, PF ,03/31/2022,03/11/2020,2017,05/06/2016,03/16/2012,04/22/2011,1 06/22/2009 Influenza Vaccine, 6+MO IM (QUADRIVALENT W/PRESERVATIVES) 03/20/2015 TDAP (Adacel,Boostrix) 04/13/2012,11/05/2010 Td (Adult), Adsorbed 06/02/2023,09/06/1999 Family History Medical History Relation Comments Diabetes Father Other Cancer Father kidney Heart Disease Maternal Grandfather Cerebrovascular Disease Maternal Grandmother Other Cancer Paternal Grandfather throat Cerebrovascular Disease Paternal Grandmother Relation Status Comments Daughter 1 Alive Daughter 2 Alive Daughter 3 Alive Father Alive Maternal Grandfather Maternal Grandmother Mother Alive Paternal Grandfather Paternal Grandmother Son Alive Social History Tobacco Use Types Packs/Day Years Used Date Smoking Tobacco: Never Smokeless Tobacco: Never Tobacco Cessation:Counseling Given: Not Answered Alcohol Use Standard Drinks/Week Comments Yes 0 (1 standard drink = 0.6 oz pur e alcohol) occassional Adolescent Education Answer Date Record ed Getting School Help Needed Not on file 03/28 Comments No Sex and Gender Information Value Date Recorded Sex Assigned at Not on file Legal Sex Female 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 Gender Identity Not on file Sexual Orientation Not on file Last Filed Vital Signs Vital Sign Reading Time Taken Comments Blood Pressure 116/83 04/25/2024 2:41 PM VASCULAR RADIOLOGIST Pulse 78 04/25/2024 2:41 PM VASCULAR RADIOLOGIST Temperature 36.7 C (98 F) 09/12/2023 11:04 AM CDT Respiratory Rate 15 07/13/2023 2:15 PM VASCULAR RADIOLOGIST Oxygen Saturation 98% 10/09/2023 10:33 AM CDT Inhaled Oxygen Concentration - - Weight 61.7 kg (136 lb) 04/25/2024 2:41 PM VASCULAR RADIOLOGIST Height 157.5 cm (5' 2) 04/25/2024 2:41 PM VASCULAR RADIOLOGIST Body Mass Index 24.87 04/25/2024 2:41 PM VASCULAR RADIOLOGIST Plan of Treatment Health Maintenance Due Date Last Done Comments ADVANCE CARE PLANNING 1976 ANNUAL REVIEW OF HM ORDERS 1976 CT COLONOGRAPHY 1976 FIT 1976 FLEX SIG 1976 sDNA (Cologuard) 1976 BMP 01/22/2009 01/23/2008 YEARLY PREVENTIVE VISIT 03/25/2023 03/25/20, 03/29/2018, 05/06/2016 PAP 06/12/2023 06/12/2020 MAMMO SCREENING 01/05/2024 01/04/2022, 12/11, 05/11/2020, Additional history exists COVID-19 VACCINE ( season) 2024 06/02/2023, 04/12/2022, 05/18/2021, Additional history exists PHQ-2 (once per calendar year) 2024 INFLUENZA VACCINE (Season Ended) 2025 04/04/2023, 03/31/2022, 03/11/2020, Additional history exists LIPID 04/22/2025 04/22/2024, 06/02/2023 ZOSTER VACCINE (1 of 2) 02/09/2026 DIABETES SCREENING 06/02/2026 06/02/2023, 01/23/2008 COLONOSCOPY 05/12/2032 05/12/2022 COLORECTAL CANCER SCREENING 05/12/2032 DTAP/TDAP/TD VACCINE (5 - Td or Tdap) 06/02/2033 06/02/2023, 04/13/2012, 11/05/2010, Additional history exists HIV SCREENING Completed 12/20/2011 HEPATITIS B VACCINE Completed 01/08/2019, 04/10/2006, 03/07/2006 HEPATITIS C SCREENING Completed 06/02/2023, 022 HPV VACCINE Aged Out No longer eligi ble based on patient's age to complete this topic MENINGITIS VACCINE Aged Out No longer eligible based on patient's age to complete this topic PNEUMOCOCCAL VACCINE: PEDIATRICS (0 to 5 YEARS) AND AT-RISK PATIENTS (6 to 49 YEARS) Aged Out No longer eligible based on patient's age to complete this topic Procedures Procedure Name Priority Date/Time Associated Diagnosis Comments LIPID PROFILE Routine 04/22/2024 10:03 AM VASCULAR RADIOLOGIST Positive cardiolipin antibodies H/O bilateral strokes GLUCOSE (EXTERNAL RESULT) Routine 06/02/2023 1:18 PM VASCULAR RADIOLOGIST HEPATITIS C (HIM EXTERNAL RESULT) Routine 06/02/2023 1:18 PM VASCULAR RADIOLOGIST COLONOSCOPY - HIM SCAN Routine 05/12/2022 PAP SMEAR - HIM PATIENT REPORTED Routine 06/12/2020 HIV 1 AND 2 ANTIBODY (QUEST) Routine 12/20/2011 BASIC METABOLIC PANEL STAT 01/23/2008 11:50 PM CDT from Last 3 Months or Most Recently Relevant to Health Maintenance Results * Lipid Profile (04/22/2024 10:03 AM VASCULAR RADIOLOGIST) Cholesterol 142 <200 mg/dL 04/22/2024 6:29 PM VASCULAR RADIOLOGIST [facility] Triglycerides 94 <150 mg/dL 04/22/2024 6:29 PM VASCULAR RADIOLOGIST [facility] Direct Measure HDL 51 >=50 mg/dL 2023 6:29 PM VASCULAR RADIOLOGIST [facility] LDL Cholesterol Calculated 72 <100 mg/dL 04/22/2024 6:29 PM VASCULAR RADIOLOGIST [facility] Non HDL Cholesterol 91 <130 mg/dL 04/22/2024 6:29 PM VASCULAR RADIOLOGIST [facility] Patient Fasting > 8hrs? Yes 04/22/2024 6:29 PM VASCULAR RADIOLOGIST [facility] Blood BLOOD SPECIMEN / Unknown Venipuncture / Unknown 04/22/2024 10:03 AM VASCULAR RADIOLOGIST 04/22/2024 10:03 AM VASCULAR RADIOLOGIST Narrative [facility] - 04/22/2024 6:29 PM VASCULAR RADIOLOGIST Cholesterol Desirable: < 200 mg/dL Borderline High: 200 - 239 mg/dL High: >= 240 mg/dL Triglycerides Normal: < 150 mg/dL Borderline High: 150 - 199 mg/dL High: 200-499 mg/dL Very High: >= 500 mg/dL Direct Measure HDL Female: >= 50 mg/dL Male: >= 40 mg/dL LDL Cholesterol Desirable: < 100 mg/dL Above Desirable: 100 - 129 mg/dL Borderline High: 130 - 159 mg/dL High: 160 - 189 mg/dL Very High: >= 190 mg/dL Non HDL Cholesterol Desirable: < 130 mg/dL Above Desirable: 130 - 159 mg/dL Borderline High: 160 - 189 mg/dL High: 190 - 219 mg/dL Very High: >= 220 mg/dL us Hank King MD LAB - BLOOD ORDERABLES Final Res ult LABORATORY [facility] [address] [facility], [address] [id number] * Glucose (External Result) (06/02/2023 1:18 PM VASCULAR RADIOLOGIST) Glucose (External) 90 60 - 115 mg/dL [facility] Blood 06/02/2023 1:18 PM VASCULAR RADIOLOGIST [facility] - 06/02/2023 1:18 PM VASCULAR RADIOLOGIST [facility] LAB RESULTS us Provider Outside LAB - [facility] EXTERNAL RESULT Final Result Performing Organization Address City/[facility]/ZIP Co de Phone Number [facility] [address] [place] [address], [facility] [phone] * Hepatitis C (HIM External Result) (06/02/2023 1:18 PM VASCULAR RADIOLOGIST) Hep C HIM See Scanned Document [facility] 06/02/2023 1:18 PM VASCULAR RADIOLOGIST [facility] - 06/02/2023 1:18 PM VASCULAR RADIOLOGIST [facility] LAB RESULTS us Provider Outside LAB - HIM EXTERNAL RESULT Final Result [facility] [address] [place] [address], [facility] [phone] * Colonoscopy - HIM Scan (05/12/2022) Narrative Marian Pachecobrandi - 05/12/[address] [facility] PROGRESS NOTE Patient Reported PROCEDURES Final Result * PAP Smear - HIM Patient Reported (06/12/2020) PAP Smear - HIM Patient Reported Unknown 06/12/2020 Narrative Marian Pachecobrandi - 06/12/[address] [facility] PROGRESS NOTE Patient Reported LABORATORY Final Result * HIV 1 and 2 Antibody (12/20/2011) HIV-1 & HIV-2 Antibody HIV 1&2 Antibody non-reacti ve Blood specimen (specimen) Patient Reported LAB - BLOOD ORDERABLES Final Re sult * (ABNORMAL) Basic metabolic panel (01/23/2008 11:50 PM CDT) Sodium 136 133 - 144 mmol/L [facility] Potassium 3.4 3.4 - 5.3 mmol/L [facility] Chloride 106 94 - 109 mmol/L [facility] Carbon Dioxide 21 20 - 32 mmol/L [facility] Glucose 89 60 - 99 mg/dL [facility] Urea Nitrogen 7 5 - 24 mg/dL [facility] Creatinine 0.61 0.52 - 1.04 mg/dL [facility] Comment:New IDMS-traceable c alibration beginning 10/11/07 GFR Estimate >90 >60 mL/min/1.7 m2 [facility] GFR Estimate If Black >90 >60 mL/min/1.7 m2 [facility] Calcium 8.0(L) 8.5 - 10.4 mg/dL [facility] Anion Gap 8 6 - 17 mmol/L [facility] 01/23/2008 11:5 0 PM CDT 01/23/2008 11:39 PM CDT Jeremy Stewart LAB - BLOOD ORDERABLES Final Res ult [facility] from Last 3 Months or Most Recently Relevant to Health Maintenance Insurance [place] [id number] BCBS OUT OF STATE BCBS OUT OF STATE Care Teams English And Reading Instructor Relationship Specialty Start Date End Date Clinic, [address] [address] PCP - General 06/16/23 Hank King MD [address] [place] [address] Neurology 06/20/23 Hank King MD [address] [place] [address] Assigned Neuroscience Provider 06/17/23 Pepito Ying MD [address] [place] [address] Cardiovascular Disease 09/13/23 Palmer Maria, PAFamC [address] [place] [address] [address] [place], [place] [address] Assigned Cancer Care Provider 10/03/23 Pepito Ying MD [address] [place] [id number] Assigned Heart and Vascular Provider 11/02/23
--- OUTSIDE RECORDS SUMMARY | 2024-11-29 00:39 | XMS_ITS | Encounter Summary ---
Author Organization [facility] Address [address] [place] [address] Care Team Providers Care Allied Health Teacher Name Role Phone [facility], [facility] Primary Care Provider Hank King MD Unavailable Hank King MD Unavailable Pepito Ying MD Unavailable [phone] Palmer Maria PA-C Unavailable [phone] Pepito Ying MD Unavailable [phone] Encounter Details Date Type Department Care Team (Late st Contact Info) Description 12/15/2023 [facility] Medical Advice [facility] [address] [id number] Shila Cruz, STRATEGIC DEBRIEFING SPECIALIST Social History Tobacco Use Types Packs/Day Years [...] on file 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 Gender Identity Not on file Sexual Orientation Not on file documented as of this encounter Plan of Treatment Not on file documented as of this encounter Visit Diagnoses Not on filedocumented in this encounter Care Teams Allied Health Teacher Relationship Specialty Start Date End Date [facility], [address] [address] PCP - General 06/16/23 Hank King MD [address] [place] [address] Neurology 06/20/23 Hank King MD [address] [place] [address] Assigned Neuroscience Provider 06/17/23 Pepito Ying MD [address] [place] [id number] Cardiovascular Disease 09/13/23 Palmer Maria, PAFamC [address] [address] Assigned Cancer Care Provider 10/03/23 Pepito Ying MD [address] [place] [id number] Assigned Heart and Vascular Provider 11/02/23 documented as of this encounter
== END 2024-11-28 14:45 | disposition home or self-care (01) ==
LOC: MAMMO 14:45
PROVIDERS: PCP Family Medicine; Visit Provider Family Medicine
DX: Z12.31 Encounter for screening mammogram for malignant neoplasm of breast (principal); Z98.82 Breast implant status
CPT/HCPCS: 77063; 77067